=== PATIENT | male | born 1945 | race Caucasian/White ===

== ENCOUNTER → 2017-06-09 | Outpatient (CLI) | payer OTHER ==
[~2017-06-09] MED LIST: ALBUAER2 INH; AMOX875T PO; FINA5TAB PO; GLYCDRO6 OP; GUAI1TAB55 PO; VORI1TAB13 PO
== END | disposition home or self-care (01) ==
LOC: C.CPL 13:26
DX: M25.512 Pain in left shoulder (principal)

== ENCOUNTER → 2018-04-23 | Outpatient (CLI) | payer OTHER ==
[~2018-04-23] MED LIST changes: -ALBUAER2 INH; +AMOX1TAB42 PO; -AMOX875T PO; +ATOR-22 PO; -FINA5TAB PO; +GFNSR600 PO; +GLIM1TAB2 PO; -GLYCDRO6 OP; -GUAI1TAB55 PO; +SALI0.6510; +VNTHFA/IN INH; -VORI1TAB13 PO
--- NOTE | 2018-04-23 13:15 | DIAGNOSTIC IMAGING REPORT ---
CT HEAD WITHOUT CONTRAST (CT) CLINICAL HISTORY: I62.00 SUBDURAL HEMATOMA. FOLLOW-UP EXAMINATION. COMPARISON STUDY: 04/10/2018 TECHNIQUE: Axial CT of the brain is performed from the vertex to the skull base. IV contrast was not administered for this examination. A dose lowering technique was utilized adhering to the principles of ALARA. CT DOSE: 638.56 mGycm FINDINGS: No intra or extra-axial mass lesions are visualized. There is no CT evidence of acute cortical infarction. There is no evidence of midline shift. There is no acute hemorrhage. No calvarial fractures are visualized. There are patchy white matter hypodensities likely on a small vessel basis. There is no evidence of pathologic ventricular dilatation. There is no evidence of acute sinusitis IMPRESSION: 1. Interval resolution of the previously described tiny right-sided subdural hematoma 2. No acute intracranial findings Electronically signed by: Shola Mathew M.D. 04/23/2018 1:14 PM Dictated Date/Time: 04/23/2018 1:13 PM
== END | disposition home or self-care (01) ==
LOC: C.CTS 12:51
PROVIDERS: ATTEND Student in an Organized Health Care Education/Training Program
DX: I62.00 Nontraumatic subdural hemorrhage, unspecified (principal)